=== PATIENT | female | born 2000 | race Caucasian/White ===

== ENCOUNTER → 2024-12-16 11:03 | Outpatient (REF) | payer OTHER, SELFPAY ==
[2024-12-18 17:31] LABS: Quantiferon Mitogen minus NIL 9.95 IU/mL; Quantiferon NIL 0.05 IU/mL; Quantiferon Plus TB1 minus NIL 0.23 IU/mL (<=0.34); Quantiferon TB Gold Plus Negative (Negative)
== END ==
LOC: OHS 11:03
PROVIDERS: ATTENDING PHYSICIAN Nurse Practitioner Family
DX: Z23 Encounter for immunization (principal)
CPT/HCPCS: 36415; 86480